=== PATIENT | male | born 1950 | race Two or more races ===

== ENCOUNTER 2021-02-27 17:14 | Inpatient (IN) | payer OTHER ==
[~2021-02-27] VITALS: Ht 167.6 cm; Wt 84.3 kg
[~2021-02-27 17:14] MED LIST: ALBU0.084; BUDE80AE3; VALS160T4
[2021-02-27] MEDS ORDERED: GLUCAGON HYDROCHLORIDE (RDNA) 1 MG VIAL IM ONE (17:30)
[2021-02-27 17:55] LABS: Basophils # (auto) 0.1 10 ^3/uL (0-0.2); Basophils % (auto) 1.3 % (0.0-2.0); Eosinophils # (auto) 1.2 10 ^3/uL (0-0.8); Eosinophils % (auto) 12.6 % (0.0-7.0); Hematocrit 41.3 % (41.0-53.0); Hemoglobin 14.1 g/dL (13.5-17.5); Lymphocytes # (auto) 3.6 10 ^3/uL (0.4-5.4); Lymphocytes % (auto) 38.2 % (10.0-50.0); Mean Corpuscular Hgb Conc. 34.1 g/dL (32.0-36.0); Mean Corpuscular Volume 88.1 fL (80.0-100.0); Monocytes # (auto) 0.6 10 ^3/uL (0-1.3); Monocytes % (auto) 6.5 % (0.0-12.0); Neutrophils # (auto) 3.9 10 ^3/uL (1.6-8.6); Neutrophils % (auto) 41.4 % (37.0-80.0); Nucleated Red Blood Cells % 0.1 %; Platelet Count (auto) 225 10^3/uL (140-450); Red Blood Cells 4.68 10^6/uL (4.5-5.90); Red Cell Distribution Width 12.6 % (11.8-14.3); White Blood Cell 9.4 10^3/uL (4.4-10.8)
[2021-02-27 18:12] LABS: INR 1.05 (0.9-1.15); Partial Thromboplastin Time 25.8 sec (23.0-31.2)
[2021-02-27 18:19] LABS: Albumin 3.9 g/dL (3.4-5.0); BUN/Creatinine Ratio 7.8; Calcium 9.1 mg/dL (8.5-10.1); Potassium 3.3 mmol/L (3.5-5.1)
[2021-02-27 18:23] LABS: Bilirubin, Total 0.4 mg/dL (0.2-1.0); Total Protein 8.9 g/dL (6.4-8.2)
[2021-02-27] MEDS ORDERED: MORPHINE SULFATE 4 MG/ML SYR/VIAL IV PRN (21:45)
[2021-02-27] MEDS ORDERED: ONDANSETRON HCL 4 MG/2 ML VIAL IV PRN (21:45)
[2021-02-27] MEDS ORDERED: NITROGLYCERIN 0.4 MG SL TAB SL PRN (21:45)
[2021-02-27] MEDS ORDERED: MORPHINE SULF INJ 2 MG/ML SYRINGE 1ML IV PRN (21:45)
[2021-02-27] MEDS: SODIUM CHLORIDE 0.9% 1,000 ML IV SCH (22:06)
[2021-02-27 23:55] VITALS: BP 153/96
[2021-02-28] MEDS ORDERED: FLUT1INH6 INH (01:13)
[2021-02-28] MEDS ORDERED: FLUT50SP NAS (01:13)
[2021-02-28] MEDS ORDERED: ALBU108A5 IN (01:13)
[2021-02-28] MEDS ORDERED: MONT10TA42 PO (01:13)
[2021-02-28] MEDS ORDERED: LOSA-69 PO (01:13)
[2021-02-28 05:00] VITALS: BP 154/106
[2021-02-28 05:28] LABS: Basophils # (auto) 0.1 10 ^3/uL (0-0.2); Eosinophils # (auto) 0.8 10 ^3/uL (0-0.8); Eosinophils % (auto) 11.1 % (0.0-7.0); Hemoglobin 13.8 g/dL (13.5-17.5); Lymphocytes # (auto) 1.7 10 ^3/uL (0.4-5.4); Lymphocytes % (auto) 22.8 % (10.0-50.0); Mean Corpuscular Hemoglobin 30.6 pg (28.0-32.0); Mean Corpuscular Hgb Conc. 34.6 g/dL (32.0-36.0); Mean Corpuscular Volume 88.6 fL (80.0-100.0); Monocytes # (auto) 0.7 10 ^3/uL (0-1.3); Monocytes % (auto) 9.9 % (0.0-12.0); Neutrophils # (auto) 4.1 10 ^3/uL (1.6-8.6); Neutrophils % (auto) 55.2 % (37.0-80.0); Nucleated Red Blood Cells % 0.1 %; Platelet Count (auto) 190 10^3/uL (140-450); Red Blood Cells 4.52 10^6/uL (4.5-5.90); Red Cell Distribution Width 12.8 % (11.8-14.3); White Blood Cell 7.4 10^3/uL (4.4-10.8)
[2021-02-28 05:55] LABS: Albumin 3.5 g/dL (3.4-5.0); Calcium 8.8 mg/dL (8.5-10.1); Potassium 3.8 mmol/L (3.5-5.1)
[2021-02-28 05:57] LABS: BUN/Creatinine Ratio 9.2
[2021-02-28 06:00] LABS: Bilirubin, Total 0.4 mg/dL (0.2-1.0)
[2021-02-28 07:45] LABS: Urine Bacteria NONE SEEN /hpf (None Seen); Urine Blood Negative /uL (Negative); Urine Specific Gravity 1.018 (1.001-1.035); Urine WBC 1 /hpf (0 - 3)
[2021-02-28 08:21] VITALS: BP 149/106
[2021-02-28] MEDS ORDERED: PANT40TA2 PO (10:29)
[2021-02-28] MEDS ORDERED: LOSARTAN POTASSIUM 50 MG TAB PO ONE (10:45)
[2021-02-28] MEDS: SODIUM CHLORIDE 0.9% 1,000 ML IV SCH (11:05)
[2021-02-28 12:32] VITALS: BP 149/106
[2021-02-28 14:00] VITALS: BP 138/78
== END 2021-02-28 14:57 | disposition home or self-care (01) | DRG 395 ==
LOC: ER 17:14 → TELE 21:44 → TELE-WESTW 23:31
PROVIDERS: ADMIT Nurse Practitioner; ATTEND Internal Medicine
DX: T18.108A Unspecified foreign body in esophagus causing other injury, initial encounter (principal); I10 Essential (primary) hypertension; E66.9 Obesity, unspecified; Z20.822 Contact with and (suspected) exposure to COVID-19; E78.5 Hyperlipidemia, unspecified; I25.10 Atherosclerotic heart disease of native coronary artery without angina pectoris; J45.909 Unspecified asthma, uncomplicated; R13.10 Dysphagia, unspecified; X58.XXXA Exposure to other specified factors, initial encounter; Y93.89 Activity, other specified; Y92.89 Other specified places as the place of occurrence of the external cause; Y99.8 Other external cause status; Z68.30 Body mass index [BMI] 30.0-30.9, adult
CPT/HCPCS: 36415; 70360; 80053; 81001; 85025; 85610; 85730; 87426; 96372; G0378

== ENCOUNTER 2021-06-24 12:45 | Emergency (ER) | payer MEDICARE ==
[~2021-06-24 12:45] MED LIST changes: +ALBU108A5 IN; +FLUT1INH6 INH; +FLUT50SP NAS; +LOSA-69 PO; +MONT-8 PO; +PANT40TA2 PO; -VALS160T4
== END 2021-06-24 13:02 | disposition left against medical advice (07) ==
LOC: ER 12:45
DX: R55 Syncope and collapse (principal); R56.9 Unspecified convulsions; Z53.21 Procedure and treatment not carried out due to patient leaving prior to being seen by health care provider

== ENCOUNTER 2022-05-28 10:06 | Emergency (ER) | payer MEDICARE ==
[~2022-05-28] VITALS: Ht 167.6 cm; Wt 92.0 kg
[2022-05-28 11:59] LABS: Albumin 3.6 g/dL (3.4-5.0); Calcium 8.9 mg/dL (8.5-10.1); Potassium 3.5 mmol/L (3.5-5.1)
[2022-05-28 12:03] LABS: BUN/Creatinine Ratio 9.9; Bilirubin, Total 0.6 mg/dL (0.2-1.0); Total Protein 7.1 g/dL (6.4-8.2)
[2022-05-28 15:43] LABS: Basophils # (auto) 0 10 ^3/uL (0-0.2); Basophils % (auto) 0.8 % (0.0-2.0); Eosinophils # (auto) 0.3 10 ^3/uL (0-0.8); Eosinophils % (auto) 6.2 % (0.0-7.0); Hematocrit 40.3 % (41.0-53.0); Hemoglobin 13.4 g/dL (13.5-17.5); Lymphocytes # (auto) 1.7 10 ^3/uL (0.4-5.4); Lymphocytes % (auto) 32.2 % (10.0-50.0); Mean Corpuscular Hemoglobin 29.8 pg (28.0-32.0); Mean Corpuscular Hgb Conc. 33.2 g/dL (32.0-36.0); Mean Corpuscular Volume 89.7 fL (80.0-100.0); Monocytes # (auto) 0.6 10 ^3/uL (0-1.3); Monocytes % (auto) 11.9 % (0.0-12.0); Neutrophils # (auto) 2.7 10 ^3/uL (1.6-8.6); Neutrophils % (auto) 48.9 % (37.0-80.0); Nucleated Red Blood Cells % 0.2 %; Red Cell Distribution Width 12.9 % (11.8-14.3); White Blood Cell 5.4 10^3/uL (4.4-10.8)
[2022-05-28 16:31] LABS: Urine Bacteria NONE SEEN /hpf (None Seen); Urine Blood Negative /uL (Negative); Urine Specific Gravity 1.016 (1.001-1.035); Urine WBC 3 /hpf (0 - 3)
[2022-05-28 17:50] VITALS: BP 137/81
== END 2022-05-28 17:50 | disposition home or self-care (01) ==
LOC: ER 10:06
DX: R10.9 Unspecified abdominal pain (principal); I10 Essential (primary) hypertension; E78.5 Hyperlipidemia, unspecified
CPT/HCPCS: 36415; 74176; 80053; 81001; 82150; 83690; 85025

== ENCOUNTER 2023-05-27 08:31 | Inpatient (IN) | payer MEDICARE ==
[~2023-05-27] VITALS: Ht 170.2 cm; Wt 93.3 kg
[~2023-05-27 08:31] MED LIST changes: -LOSA-69 PO; +LOSA50TA46 PO
[2023-05-27 09:18] VITALS: RESP 20; O2SAT 98
[2023-05-27 09:21] LABS: Basophils # (auto) 0.1 10 ^3/uL (0-0.2); Eosinophils # (auto) 0.2 10 ^3/uL (0-0.8); Eosinophils % (auto) 3.7 % (0.0-7.0); Hematocrit 42.3 % (41.0-53.0); Hemoglobin 14.4 g/dL (13.5-17.5); Lymphocytes # (auto) 0.8 10 ^3/uL (0.4-5.4); Lymphocytes % (auto) 12.1 % (10.0-50.0); Mean Corpuscular Hemoglobin 30.9 pg (28.0-32.0); Mean Corpuscular Volume 90.9 fL (80.0-100.0); Monocytes # (auto) 0.4 10 ^3/uL (0-1.3); Monocytes % (auto) 5.3 % (0.0-12.0); Neutrophils # (auto) 5.2 10 ^3/uL (1.6-8.6); Neutrophils % (auto) 77.9 % (37.0-80.0); Nucleated Red Blood Cells % 0.2 %; Red Blood Cells 4.65 10^6/uL (4.5-5.90); Red Cell Distribution Width 12.9 % (11.8-14.3); White Blood Cell 6.7 10^3/uL (4.4-10.8)
[2023-05-27 10:16] LABS: Albumin 4.4 g/dL (3.2-4.8); Alkaline Phosphatase 57 U/L (46-116); Anion Gap 8.8 (5-15); Bilirubin, Total 0.8 mg/dL (0.2-1.0); Calcium 9.2 mg/dL (8.5-10.1); Carbon Dioxide 24.2 mmol/L (20-30); Chloride 102 mmol/L (98-107); Total Protein 7.7 g/dL (5.7-8.2)
[2023-05-27 10:17] LABS: BUN/Creatinine Ratio 10.3 (10.0-20.0)
[2023-05-27 10:18] LABS: Glucose 111 mg/dL (74-106); Potassium 4.9 mmol/L (3.5-5.1); Sodium 135 mmol/L (136-145)
[2023-05-27 10:19] LABS: Alanine Aminotransferase 42 U/L (7-40); Aspartate Aminotransferase 50 U/L (13-40); Blood Urea Nitrogen 14 mg/dL (9-23)
[2023-05-27] MEDS ORDERED: ACETAMINOPHEN 500 MG TAB PO ONE (14:00)
[2023-05-27] MEDS ORDERED: IBUPROFEN 600 MG TAB PO ONE (14:00)
[2023-05-27] MEDS ORDERED: SODIUM CHLORIDE 0.9% 1,000 ML IV ONE ×2 (14:15)
[2023-05-27] MEDS ORDERED: NITROGLYCERIN 0.4 MG SL TAB SL PRN (14:15)
[2023-05-27] MEDS ORDERED: MORPHINE SULFATE INJ 2 MG/ml SYRG IV PRN (14:15)
[2023-05-27] MEDS ORDERED: ONDANSETRON HCL 4 MG/2 ML VIAL IV PRN (14:15)
[2023-05-27] MEDS ORDERED: cefTRIAXone 1GM/50ML D5W 50 ML IV ONE (14:15)
[2023-05-27] MEDS ORDERED: DOCUSATE SOD 100 MG CAP PO PRN (14:15)
[2023-05-27 15:46] LABS: Lactic Acid w/Reflex 3.1 mmol/L (0.4-2.0)
[2023-05-27 16:01] LABS: Urine Bacteria NONE SEEN /hpf (None Seen); Urine Blood Negative /uL (Negative); Urine Clarity Clear (Clear); Urine Color Yellow (Yellow); Urine Mucus FEW (None Seen); Urine Protein, UAD 1+ (Negative); Urine Specific Gravity 1.021 (1.001-1.035); Urine Urobilinogen Normal (Negative); Urine WBC 1 /hpf (0 - 3); Urine pH 6.5 (5.0-8.0)
[2023-05-27] MEDS: ACETAMINOPHEN 325 MG TAB PO PRN (16:36)
[2023-05-27] MEDS ORDERED: SODIUM CHLORIDE 0.9% 500 ML IV ONE (17:15)
[2023-05-27] MEDS: SODIUM CHLORIDE 0.9% 1,000 ML IV SCH (17:25)
[2023-05-27] MEDS ORDERED: IOHEXOL 350 MG/ML 100ML IJ ONE ×2 (19:13→19:14)
[2023-05-27 19:41] LABS: Rapid Influenza A Negative (Negative); Rapid Influenza B Negative (Negative)
[2023-05-27 19:42] LABS: COVID19 ANTIGEN SOFIA FIA NEGATIVE (NEGATIVE)
[2023-05-27] MEDS ORDERED: LORazepam 2MG/ML-1ML VIAL IV PRN (20:30)
[2023-05-27 21:23] LABS: LDL Cholesterol 113 mg/dL (< 100); Triglycerides 165 mg/dL (< 150)
[2023-05-27 21:25] LABS: Cholesterol 175 mg/dL (< 200); HDL Cholesterol 40 mg/dL (40-59)
[2023-05-27] MEDS: ENOXAPARIN SOD 100 MG/1 ML SYRINGE SC SCH (22:37)
[2023-05-27] MEDS: ATORVASTATIN 20 MG TAB PO SCH (22:37)
[2023-05-28] MEDS: SODIUM CHLORIDE 0.9% 1,000 ML IV SCH ×4 (00:08→18:21)
[2023-05-28 06:38] LABS: Basophils # (auto) 0 10 ^3/uL (0-0.2); Basophils % (auto) 0.6 % (0.0-2.0); Eosinophils # (auto) 0.2 10 ^3/uL (0-0.8); Eosinophils % (auto) 3.8 % (0.0-7.0); Hemoglobin 13.9 g/dL (13.5-17.5); Lymphocytes # (auto) 0.9 10 ^3/uL (0.4-5.4); Lymphocytes % (auto) 18.2 % (10.0-50.0); Mean Corpuscular Hgb Conc. 34.7 g/dL (32.0-36.0); Mean Corpuscular Volume 89.3 fL (80.0-100.0); Monocytes # (auto) 0.5 10 ^3/uL (0-1.3); Monocytes % (auto) 10.6 % (0.0-12.0); Neutrophils # (auto) 3.4 10 ^3/uL (1.6-8.6); Neutrophils % (auto) 66.8 % (37.0-80.0); Nucleated Red Blood Cells % 0.1 %; Red Blood Cells 4.48 10^6/uL (4.5-5.90); White Blood Cell 5.1 10^3/uL (4.4-10.8)
[2023-05-28 07:06] LABS: Alanine Aminotransferase 31 U/L (7-40); Alkaline Phosphatase 50 U/L (46-116); Anion Gap 7.1 (5-15); Aspartate Aminotransferase 19 U/L (13-40); BUN/Creatinine Ratio 13.6 (10.0-20.0); Bilirubin, Total 0.8 mg/dL (0.2-1.0); Blood Urea Nitrogen 14 mg/dL (9-23); Calcium 8.6 mg/dL (8.5-10.1); Carbon Dioxide 25.9 mmol/L (20-30); Chloride 106 mmol/L (98-107); Glucose 112 mg/dL (74-106); Potassium 3.5 mmol/L (3.5-5.1); Sodium 139 mmol/L (136-145); Total Protein 6.8 g/dL (5.7-8.2)
[2023-05-28 08:00] VITALS: PULSE 79; RESP 15; O2SAT 95
[2023-05-28] MEDS ORDERED: ENOXAPARIN SOD 40 MG/0.4 ML SYRINGE SC SCH (10:00)
[2023-05-28] MEDS: ASPirin 81 mg TAB PO SCH (10:04)
[2023-05-28] MEDS: ENOXAPARIN SOD 100 MG/1 ML SYRINGE SC SCH ×2 (10:05→22:00)
[2023-05-28] MEDS ORDERED: ALBUTEROL SULF HFA 90MCG INH 200DOSE IN PRN (16:45)
[2023-05-28] MEDS ORDERED: ALBUTEROL SULF 2.5 MG/0.5ML(0.5%) NEB SOLN NEB PRN (17:00)
[2023-05-28 18:30] VITALS: BP 138/88; PULSE 78; RESP 18; TEMP 97.4; O2SAT 95
[2023-05-28 20:00] VITALS: PULSE 86; RESP 18; O2SAT 97
[2023-05-28 20:38] VITALS: BP 138/88; PULSE 78; RESP 18; TEMP 97.4; O2SAT 95
[2023-05-28 22:00] VITALS: BP 134/85; PULSE 79; RESP 17; TEMP 97.7; O2SAT 97
[2023-05-28 22:43] VITALS: PULSE 75; O2SAT 98
[2023-05-28] MEDS: ATORVASTATIN 20 MG TAB PO SCH (22:48)
[2023-05-29] VITALS (11 sets, daily range): BP systolic 131–159; BP diastolic 81–97; PULSE 69–89; RESP 18–22; TEMP 97.3–98.5; O2SAT 94–98
[2023-05-29] MEDS: SODIUM CHLORIDE 0.9% 1,000 ML IV SCH ×2 (06:05→09:30)
[2023-05-29] MEDS ORDERED: VANCOMYCIN PER PHARMACY 0 MG IV SCH (06:15)
[2023-05-29] MEDS ORDERED: VANCOMYCIN 1GM/250ML 250 ML IV ONE (06:30)
[2023-05-29] MEDS: PANTOPRAZOLE 40 MG TAB PO SCH (09:28)
[2023-05-29] MEDS: MONTELUKAST SODIUM 10 MG TAB PO SCH (09:28)
[2023-05-29] MEDS: ASPirin 81 mg TAB PO SCH (09:29)
[2023-05-29] MEDS: ENOXAPARIN SOD 100 MG/1 ML SYRINGE SC SCH (09:30)
[2023-05-29] MEDS ORDERED: LOSARTAN POTASSIUM 50 MG TAB PO SCH (10:00)
[2023-05-29] MEDS ORDERED: cefTRIAXone 1GM/50ML D5W 0 ML IV ONE (10:00)
[2023-05-29] MEDS: CEFTRIAXONE SODIUM 2 GM in D5W 5% 100 ML IV SCH (10:49)
[2023-05-29] MEDS: VANCOMYCIN 1GM/250ML 250 ML IV SCH (22:13)
[2023-05-29] MEDS: APIXABAN 5 MG TAB PO SCH (22:14)
[2023-05-29] MEDS: ATORVASTATIN 20 MG TAB PO SCH (22:14)
[2023-05-29] MEDS: LOSARTAN POTASSIUM 50 MG TAB PO SCH (22:15)
[2023-05-30] VITALS (11 sets, daily range): BP systolic 139–163; BP diastolic 88–114; PULSE 64–89; RESP 16–20; TEMP 97.5–98.3; O2SAT 94–97
[2023-05-30] MEDS: SODIUM CHLORIDE 0.9% 1,000 ML IV SCH ×2 (05:59→21:55)
[2023-05-30] MEDS: MONTELUKAST SODIUM 10 MG TAB PO SCH (09:23)
[2023-05-30] MEDS: ASPirin 81 mg TAB PO SCH (09:23)
[2023-05-30] MEDS: APIXABAN 5 MG TAB PO SCH ×2 (09:23→21:55)
[2023-05-30] MEDS: CEFTRIAXONE SODIUM 2 GM in D5W 5% 100 ML IV SCH (09:23)
[2023-05-30] MEDS: PANTOPRAZOLE 40 MG TAB PO SCH (09:23)
[2023-05-30] MEDS: LOSARTAN POTASSIUM 50 MG TAB PO SCH ×2 (09:24→21:55)
[2023-05-30] MEDS: VANCOMYCIN 1GM/250ML 250 ML IV SCH (12:08)
[2023-05-30 12:13] LABS: Hepatitis B Surface Antigen Negative (Negative)
[2023-05-30 12:35] LABS: Hepatitis C Antibody Negative (Negative)
[2023-05-30 12:42] LABS: Hepatitis A Total Antibody Positive (Negative)
[2023-05-30 15:53] LABS: Hepatitis B Surface Antibody Negative (Negative)
[2023-05-30] MEDS ORDERED: hydrALAZINE HCL 20 MG/ML VL IV PRN (18:15)
[2023-05-30] MEDS: ATORVASTATIN 20 MG TAB PO SCH (21:55)
[2023-05-31] VITALS (9 sets, daily range): BP systolic 129–156; BP diastolic 73–96; PULSE 67–91; RESP 16–22; TEMP 97.9–98.8; O2SAT 93–98
[2023-05-31] MEDS: VANCOMYCIN 1GM/250ML 250 ML IV SCH (03:53)
[2023-05-31] MEDS: ACETAMINOPHEN 325 MG TAB PO PRN (05:38)
[2023-05-31] MEDS: PANTOPRAZOLE 40 MG TAB PO SCH (10:03)
[2023-05-31] MEDS: LOSARTAN POTASSIUM 50 MG TAB PO SCH ×2 (10:04→21:18)
[2023-05-31] MEDS: APIXABAN 5 MG TAB PO SCH ×2 (10:04→21:19)
[2023-05-31] MEDS: CEFTRIAXONE SODIUM 2 GM in D5W 5% 100 ML IV SCH (10:04)
[2023-05-31] MEDS: DOCUSATE SOD 100 MG CAP PO SCH ×2 (10:04→21:18)
[2023-05-31] MEDS: ASPirin 81 mg TAB PO SCH (10:04)
[2023-05-31] MEDS: MONTELUKAST SODIUM 10 MG TAB PO SCH (10:04)
[2023-05-31] MEDS ORDERED: APIX5TAB PO (11:21)
[2023-05-31] MEDS ORDERED: ATOR20TA50 PO (11:21)
[2023-05-31] MEDS ORDERED: LINE1TAB6 PO (11:21)
[2023-05-31] MEDS ORDERED: ASPI-325 PO (11:21)
[2023-05-31] MEDS: SODIUM CHLORIDE 0.9% 1,000 ML IV SCH (11:55)
[2023-05-31] MEDS: VANCOMYCIN 750mg/250ml 250 ML IV SCH (18:27)
[2023-05-31] MEDS: ATORVASTATIN 20 MG TAB PO SCH (21:19)
[2023-06-01] VITALS (8 sets, daily range): BP systolic 123–150; BP diastolic 63–83; PULSE 65–95; RESP 16–18; TEMP 37; O2SAT 93–97
[2023-06-01] MEDS: SODIUM CHLORIDE 0.9% 1,000 ML IV SCH ×3 (00:21→14:13)
[2023-06-01] MEDS: VANCOMYCIN 750mg/250ml 250 ML IV SCH (03:57)
[2023-06-01 06:21] LABS: Basophils # (auto) 0.1 10 ^3/uL (0-0.2); Basophils % (auto) 0.6 % (0.0-2.0); Eosinophils # (auto) 0.2 10 ^3/uL (0-0.8); Eosinophils % (auto) 2.3 % (0.0-7.0); Hematocrit 37.5 % (41.0-53.0); Hemoglobin 12.9 g/dL (13.5-17.5); Lymphocytes # (auto) 1.2 10 ^3/uL (0.4-5.4); Lymphocytes % (auto) 14.7 % (10.0-50.0); Mean Corpuscular Hemoglobin 30.8 pg (28.0-32.0); Mean Corpuscular Hgb Conc. 34.4 g/dL (32.0-36.0); Mean Corpuscular Volume 89.6 fL (80.0-100.0); Monocytes # (auto) 0.9 10 ^3/uL (0-1.3); Monocytes % (auto) 10.8 % (0.0-12.0); Neutrophils # (auto) 6.1 10 ^3/uL (1.6-8.6); Neutrophils % (auto) 71.6 % (37.0-80.0); Red Blood Cells 4.19 10^6/uL (4.5-5.90); Red Cell Distribution Width 13.1 % (11.8-14.3); White Blood Cell 8.5 10^3/uL (4.4-10.8)
[2023-06-01 07:41] LABS: Anion Gap 7.3 (5-15); Carbon Dioxide 23.7 mmol/L (20-30); Chloride 106 mmol/L (98-107); Potassium 3.3 mmol/L (3.5-5.1); Sodium 137 mmol/L (136-145)
[2023-06-01 07:42] LABS: Calcium 8.5 mg/dL (8.5-10.1)
[2023-06-01 07:47] LABS: Blood Urea Nitrogen 10 mg/dL (9-23); Glucose 138 mg/dL (74-106)
[2023-06-01] MEDS: CEFTRIAXONE SODIUM 2 GM in D5W 5% 100 ML IV SCH ×2 (10:00→13:59)
[2023-06-01] MEDS: ASPirin 81 mg TAB PO SCH (11:23)
[2023-06-01] MEDS: PANTOPRAZOLE 40 MG TAB PO SCH (11:23)
[2023-06-01] MEDS: DOCUSATE SOD 100 MG CAP PO SCH (11:23)
[2023-06-01] MEDS: MONTELUKAST SODIUM 10 MG TAB PO SCH (11:23)
[2023-06-01] MEDS: LOSARTAN POTASSIUM 50 MG TAB PO SCH (11:24)
[2023-06-01] MEDS: APIXABAN 5 MG TAB PO SCH (11:28)
[2023-06-01] MEDS ORDERED: LACTULOSE 20Gm/30ML SOLN PO SCH (11:30)
[2023-06-02] MEDS ORDERED: LACTULOSE 20Gm/30ML SOLN PO SCH (10:00)
[2023-06-05] MEDS ORDERED: APIXABAN 5 MG TAB PO SCH (22:00)
[2023-06-06 19:38] LABS: Hepatitis B Core Total AB Negative (Negative)
== END 2023-06-01 15:10 | disposition home or self-care (01) | DRG 871 ==
LOC: ER 08:31 → TELE 14:11 → TELE-WESTW 05-28 17:20
PROVIDERS: ADMIT Nurse Practitioner; ATTEND Nurse Practitioner
PROC: 5A09357 Assistance with Respiratory Ventilation, Less than 24 Consecutive Hours, Continuous Positive Airway Pressure (ICD-10-PCS; principal; 2023-05-28)
DX: A41.2 Sepsis due to unspecified staphylococcus (principal); G93.41 Metabolic encephalopathy; J18.9 Pneumonia, unspecified organism; G45.9 Transient cerebral ischemic attack, unspecified; I82.411 Acute embolism and thrombosis of right femoral vein; G47.10 Hypersomnia, unspecified; E86.0 Dehydration; E66.9 Obesity, unspecified; K76.0 Fatty (change of) liver, not elsewhere classified; E78.5 Hyperlipidemia, unspecified; J45.909 Unspecified asthma, uncomplicated; R79.89 Other specified abnormal findings of blood chemistry; I45.10 Unspecified right bundle-branch block; I11.9 Hypertensive heart disease without heart failure; B34.9 Viral infection, unspecified; Z20.822 Contact with and (suspected) exposure to COVID-19; Z79.01 Long term (current) use of anticoagulants; Z79.82 Long term (current) use of aspirin; Z79.899 Other long term (current) drug therapy; Z82.49 Family history of ischemic heart disease and other diseases of the circulatory system; Z87.442 Personal history of urinary calculi; Z68.33 Body mass index [BMI] 33.0-33.9, adult
CPT/HCPCS: 36415; 70450; 70551; 71250; 71275; 74176; 80048; 80053; 80061; 80202; 81001; 82565; 82728; 82962; 83605; 84443; 84484; 85025; 85379; 86704; 86706; 86708; 86803; 87040; 87077; 87186; 87340; 87426; 87804; 92610; 93005; 93306; 93886; 93970; 94660; 97163; G0378; J0696; J7060

== ENCOUNTER → 2025-02-15 | Outpatient (CLI) | payer MEDICARE ==
[~2025-02-15] VITALS: Ht 167.6 cm; Wt 95.3 kg
[~2025-02-15] MED LIST changes: +APIX5TAB PO; +ASPI-325 PO; +ATOR20TA50 PO; +LINE1TAB6 PO; +LOSA-534 PO; -LOSA50TA46 PO
[2025-02-15] MEDS: REGADENOSON 0.4 MG/5 ML SYRG IV ONE ×2 (11:00)
--- NOTE | 2025-02-15 13:22 | DVHSR ---
APPROVED REPORT Exam: Nuclear Stress Test BMI: 0 Stress Test Details HR Max Heart Rate (APMHR): 145.695844 bpm Target HR (85% APMHR): 123.185042 bpm BP ECG Stress ECG Conclusion lvef 80% inferolateral wall mild fixed defect no ischemia noted NM EXAM: Myocardial Perfusion REST/STRESS Imaging Protocol: Rest Tc-99m/Stress Tc-99m 1 day Resting Data Rest SPECT myocardial perfusion imaging was performed in supine position 60 minutes following the int ravenous injection of 13.2 mCi of Tc-99m Sestamibi. Time of rest injection: 09:35 Date: 02/15/2025 Time of rest imagin:35 Date: 02/15/2025 Administration Route: IV Administration Site: Left Hand Pharmacologic Stress Pharmacologic stress test was performed by injecting Regadenoson 0.4 mg IV push followed by the intra venous injection of 34.3 mCi of Tc-99m Sestamibi. Time of stress injection: 11:00 Date: 02/15/2025 Time of stress imagin:00 Date: 02/15/2025 Administration Route: IV Administration Site: Left Hand The images were gated to evaluate regional wall motion and calculate left ventricular ejection fracti on. Stress only was performed in the Supine position. Nuclear Conclusion Nuclear Findings: negative for ischemia lvef 80% inferolateral wall mild fixed defect no ischemia noted
== END | disposition home or self-care (01) ==
LOC: XY 08:51
PROVIDERS: ATTEND Internal Medicine Cardiovascular Disease
DX: I10 Essential (primary) hypertension (principal); E78.2 Mixed hyperlipidemia; R94.31 Abnormal electrocardiogram [ECG] [EKG]
CPT/HCPCS: 78452; 93017; A9500; J2785

== ENCOUNTER 2025-02-27 17:22 | Emergency (ER) | payer MEDICARE ==
[~2025-02-27] VITALS: Ht 170.2 cm; Wt 93.8 kg
[2025-02-27] MEDS: HYDROcodone-ACET 5/325MG TAB PO ONE (18:40)
--- NOTE | 2025-02-27 18:49 | ED.PDOC ---
Astrid. trauma (HPI) HPI Comments 74 year old male came to ER due to fall injury. Patient had a ground level fall earlier whe he accidentally tripped and landed badly on his left elbow/ arm. Noted head trauma but denies any loss of consciousness. Patient able ta ambulate without assistance after the fall. Patient complaining of left elbow pain and swelling Chief Complaint: Fall Injury Time Seen by MD: 18:49 Primary Care Provider: EDUIN Reviewed notes: Nurses Notes Allergies: Coded Allergies: NO KNOWN ALLERGIES (Unverified , 03/31/11) Home Meds Active Scripts Linezolid (Zyvox) 600 Mg Tab, 600 MG PO BID for 30 Days, #60 TAB Prov:SORIN COLE NP 05/31/23 Apixaban Base (ELIQUIS) 5 Mg Tab, 5 MG PO BID for 30 Days, #60 TAB 5 Refills Prov:DOUGLASSORINNINFA Samano NP 05/31/23 Apixaban Base (ELIQUIS) 5 Mg Tab, 10 MG PO BID for 4 Days, #16 TAB Prov:SORIN COLE [employer] 05/31/23 Aspirin (Aspirin Low Dose) 81 Mg Tab, 81 MG PO DAILY for 30 Days, #30 TAB Prov:DOUGLASSORIN M [employer] 05/31/23 Atorvastatin Calcium (ATORVASTATIN CALCIUM) 20 Mg Tab, 20 MG PO HS for 30 Days, #30 TAB Prov:DOUGLASSORIN M [employer] 05/31/23 Pantoprazole Sodium Sesquihydr (Protonix) 40 Mg Tab, 40 MG PO DAILY, #30 TAB Prov:DELL HEWITT MD 02/28/21 Reported Medications Albuterol Sulfate (Albuterol Sulfate Hfa) 108 Mcg/Act Aer, 108 MCG IN PRN for SHORTNESS OF BREATH, AER 02/28/21 Fluticasone Propionate (Nasal) (Fluticasone Propionate) 50 Mcg/Act Spr, 50 SPRAY JOSSUE 02/28/21 Montelukast Sodium (MONTELUKAST SODIUM) 10 Mg Tab, 1 TAB PO DAILYPRN for Asthma MDD 10 mg 02/28/21 Losartan Potassium (Losartan Potassium) 50 Mg Tab, 1 TAB PO DAILYPRN for HTN MDD 50 mg 02/28/21 Fluticasone Furoate-Vilanterol (Breo Ellipta 200-25 Mcg/INH) 1 Inh Inh, 1 PUFF INH DAILYPRN for Asthma 02/28/21 Budesonide-Formoterol Fumarate (Symbicort) 1 Aer Aer 03/31/11 Albuterol Sulfate (Albuterol Sulfate) 0.083 % Neb 03/31/11 Information Source: Patient Mode of Arrival: Ambulatory Severity: Moderate Timing: Hours Duration: Since onset Location: (L) Elbow Mechanism: Fall Associated signs and symtoms: Headache Past Medical History PAST MEDICAL HISTORY: Asthma, High Lipids, HTN Surgical History: Denies all surgeries Family History Family History: Reviewed,noncontributory to illness, Family hx of Cancer, Family hx of heart elvin Social History Smoker: Non-Smoker Alcohol: Denies ETOH Use Drugs: Denies Drug Use Lives In: Home Constitutional: denies: chills, diaphoresis, fatigue, fever, malaise, sweats, weakness, others EENTM: denies: blurred vision, double vision, ear bleeding, ear discharge, ear drainage, ear pain, ear ringing, eye pain, eye redness, hearing loss, mouth pain, mouth swelling, nasal discharge, nose bleeding, nose congestion, nose pain, photophobia, tearing, throat pain, throat swelling, voice changes, others Respiratory: denies: cough, hemoptysis, orthopnea, SOB at rest, shortness of breath, SOB with excertion, stridor, wheezing, others Cardiovascular: denies: chest pain, dizzy spells, diaphoresis, Dyspnea on exertion, edema, irregular heart beat, left arm pain, lightheadedness, palpitations, PND, syncope, others Gastrointestinal: denies: abdomen distended, abdominal pain, blood streaked bowels, constipated, diarrhea, dysphagia, difficulty swallowing, hematemesis, melena, nausea, poor appetite, poor fluid intake, rectal bleeding, rectal pain, vomiting, others Genitourinary: denies: burning, dysuria, flank pain, frequency, hematuria, incontinence, penile discharge, penile sore, pain, testicle pain, testicle swelling, urgency, others Neurological: reports: headache; denies: dizziness, fainting, left sided numbness, left sided weakness, numbness, paresthesia, pre-existing deficit, right sided numbness, right sided weakness, seizure, speech problems, tingling, tremors, weakness, others Musculoskeletal: reports: joint pain (left elbow), joint swelling (left elbow); denies: back pain, gout, muscle pain, muscle stiffness, neck pain, others Integumetry: denies: bruises, change in color, change in hair/nails, dryness, laceration, lesions, lumps, rash, wounds, others Allergic/Immunocompromised: denies: Difficulty Healing, Frequent Infections, Hives, Itching, others Hematologic/Lymphatic: denies: anemia, blood clots, easy bleeding, easy bruising, swollen glands, others Endocrine: denies: excessive hunger, excessive sweating, excessive thirst, excessive urination, flushing, intolerance to cold, intolerance to heat, unexplained weight gain, unexplained weight loss, others Psychiatric: denies: anxiety, bipolar disorder, depression, hopeless, panic disorder, schizophrenia, sleepless, suicidal, others Physical Exam General Appearance: No Apparent Distress, Normal HEENT: Normal ENT Inspection, Pharynx Normal, TMs Normal Neck: Full Range of Motion, Non-Tender, Normal, Normal Inspection Respiratory: Chest Non-Tender, Lungs Clear, No Accessory Muscle Use, No Respiratory Distress, Normal Breath Sounds Cardiovascular: No Edema, No JVD, No Murmur, No Gallop, Normal Peripheral Pulses, Regular Rate/Rhythm Breast Exam: Deferred Gastrointestinal: No Organomegaly, Non Tender, No Pulsatile Mass, Normal Bowel Sounds, Soft Genitalia: Deferred Pelvic: Deferred Rectal: Deferred Extremities: No calf tenderness, Normal capillary refill, Normal inspection, Normal range of motion, Non-tender, No pedal edema Musculoskeletal : Apperance: Normal Neurologic: Alert, military police officer II-XII nml as Tested, No Motor Deficits, Normal Affect, Normal Mood, No Sensory Deficits Cerebellar Function: Normal Reflexes: Normal Skin: Dry, Normal Color, Warm Lymphatic: No Adenopathy Was a procedure done? Was a procedure done?: No Differential Diagnosis Multiple Trauma: Closed Head Injury, Fractures, Abrasions, Other (dislocations) Neck Injury: Cervical Sprain, Cervical Strain X-Ray, Labs, Meds, VS Vital Signs Date Time Temp Pulse Resp B/P (MAP) Pulse Ox O2 Delivery O2 Flow Rate FiO2 02/27/25 18:44 Room Air* 0 21 02/27/25 18:44 97.6 82 16 114/66 (82) 96 97.6 02/27/25 17:37 98.2 101 17 118/80 (31) 95 98.2 Current Medications Medications (Trade) Dose Ordered Sig/Sabrina Route Start Time Stop Time Status Last Admin Acetaminophen/ Hydrocodone Bitart ([place] 5/325MG Tab) 1 tab ONCE ONCE PO 02/27/25 18:30 02/27/25 18:31 DC 02/27/25 18:40 PROCEDURE(s): LELB3 - L ELBOW 3 VIEW XRAY REASON: left elbow pain ORDER NUMBER(s): [id number], ACCESSION NUMBER(s): [id number] CLINICAL INDICATION: left elbow pain TECHNIQUE: 3 radiographic views of the left elbow were obtained. Only 2 images of the left elbow were received. Comparison: None FINDINGS/IMPRESSION: There is no evidence of acute fracture or dislocation. Joint effusion can not be evaluated. Time of 1ST Reevaluation: 18:46 Reevaluation 1ST: Unchanged Patient Education/Counseling: Diagnosis, Treatment Family Education/Counseling: Diagnosis, Treatment Departure 1 Departure Time of Disposition: 20:21 (Patient x-rays were benign. Patient likely with left elbow strain.) Impression: Primary Impression: Strain of left elbow Qualified Codes: S56.912A - Strain of unspecified muscles, fascia and tendons at forearm level, left arm, initial encounter Additional Impression: Fall Qualified Codes: W19.XXXA - Unspecified fall, initial encounter Disposition: HOME / SELF CARE / HOMELESS Condition: Stable Additional Instructions: Your x-rays are benign and you do not have a fracture. You likely strained your elbow. For pain you can take the followinam: Ibuprofen 400mg with food Noon: Acetaminophen 1000mg 4pm: Ibuprofen 400mg with food 8pm: Acetaminophen 1000mg You should follow up with your regular doctor within one week to ensure you are doing better. If your symptoms worsen or you have any other concerns then please return to the ER. Discharged With: Self Critical Care Note Critical Care Time?: No Stability Stability form required: No Heart Score Heart Score: Heart Score Response (Comments) Value History N/A 0 EKG N/A 0 Age N/A 0 Risk Factors N/A 0 Troponin N/A 0 Total 0 I personally scribed for CLAUDE WILKINS MD ([email or web address]) on 02/27/25 at 18:49. Electronically submitted by Meet Lakhani ([facility]). I personally scribed for CLAUDE WILKINS MD ([facility]) on 02/27/25 at 18:56. Electronically submitted by Meet Lakhani ([facility]). I personally scribed for CLAUDE WILKINS MD ([facility]) on 02/27/25 at 19:55. Electronically submitted by Meet Lakhani ([facility]). CLAUDE WILKINS MD February 27, 2025 18:49
--- NOTE | 2025-02-27 18:53 | DVH ---
CLINICAL INDICATION: left elbow pain TECHNIQUE: 3 radiographic views of the left elbow were obtained. Only 2 images of the left elbow were received. Comparison: None FINDINGS/IMPRESSION: There is no evidence of acute fracture or dislocation. Joint effusion can not be evaluated.
[2025-02-27 20:49] VITALS: BP 117/75; PULSE 100; RESP 16; TEMP 98.1; O2SAT 98
== END 2025-02-27 21:05 | disposition home or self-care (01) ==
LOC: ER 17:28
DX: S56.912A Strain of unspecified muscles, fascia and tendons at forearm level, left arm, initial encounter (principal); J45.909 Unspecified asthma, uncomplicated; I10 Essential (primary) hypertension; E78.5 Hyperlipidemia, unspecified; Z79.899 Other long term (current) drug therapy; Z79.82 Long term (current) use of aspirin; Z79.51 Long term (current) use of inhaled steroids; Z79.01 Long term (current) use of anticoagulants; W01.0XXA Fall on same level from slipping, tripping and stumbling without subsequent striking against object, initial encounter; Y93.89 Activity, other specified; Y92.89 Other specified places as the place of occurrence of the external cause; Y99.8 Other external cause status
CPT/HCPCS: 73080